=== PATIENT | male | born 1980 | race Caucasian/White ===

== ENCOUNTER 2018-05-26 05:45 | Day surgery (SDC) | payer OTHER ==
[~2018-05-26] VITALS: Ht 180.3 cm; Wt 80.5 kg
[~2018-05-26 05:45] MED LIST: ACET-66 PO; MEDICAL MARIJUANA PO; RINGERS SOLUTION,LACTATED 0 ML IV ONE; [UNRECOGNIZED DRUG - OTHER] PO
[2018-05-26] MEDS ORDERED: RINGERS SOLUTION,LACTATED 1,000 ML IV ONE ×2 (06:00→06:47)
[2018-05-26] MEDS ORDERED: BUPIVACAINE HCL/PF 0.5% 30 ML VIAL ONE (06:46)
[2018-05-26] MEDS ORDERED: LIDOCAINE HCL 2%/EPI 1:200,000/PF 20 ML VIAL ONE (06:46)
[2018-05-26] MEDS ORDERED: GUM MASTIC/STORAX/MSAL/ALCOHOL LIQUID 0.67 ML VIAL TP ONE (06:46)
[2018-05-26] MEDS ORDERED: SODIUM CHLORIDE 0.9% 0 ML IV ONE (06:47)
[2018-05-26] MEDS ORDERED: MEPERIDINE HCL/PF 25 MG/0.5 ML AMP IVP PRN (08:15)
[2018-05-26] MEDS ORDERED: FentaNYL CITRATE-PF 100 MCG/2 ML VIAL IVP PRN (08:15)
[2018-05-26] MEDS ORDERED: ACETAMINOPHEN 500 MG TABLET PO PRN (09:30)
[2018-05-26] MEDS ORDERED: IBUPROFEN 600 MG TABLET PO PRN (09:30)
[2018-05-26] MEDS ORDERED: HYDROCODONE/ACETAMINOPHEN 5-325 MG TABLET PO PRN (09:30)
[2018-05-26] MEDS ORDERED: HYDROmorphone 2 MG/ML SYRINGE ONE (09:32)
[2018-05-26] MEDS: HYDROmorphone 2 MG/ML SYRINGE IVP PRN ×3 (09:34→10:04)
[2018-05-26] MEDS ORDERED: LIDOCAINE HCL/PF 2% 5 ML VIAL INJ ONE (12:00)
[2018-05-26] MEDS ORDERED: PROPOFOL 1% 20 ML VIAL IVP ONE (12:00)
[2018-05-26] MEDS ORDERED: SUCCINYLCHOLINE CHLORIDE 20 MG/ML 10 ML VIAL IVP ONE (12:00)
[2018-05-26] MEDS ORDERED: MORPHINE SULFATE 4 MG/ML SYRINGE IVP ONE (12:00)
[2018-05-26] MEDS ORDERED: MIDAZOLAM HCL 2 MG/2 ML VIAL IVP ONE (12:00)
[2018-05-26] MEDS ORDERED: ONDANSETRON HCL 4 MG/2 ML VIAL IVP ONE (12:00)
[2018-05-26] MEDS ORDERED: 0.9% SODIUM CHLORIDE 10 ML VIAL IVP ONE (12:00)
[2018-05-26] MEDS ORDERED: KETOROLAC TROMETHAMINE 60 MG/2 ML VIAL IM ONE (12:00)
[2018-05-26] MEDS ORDERED: FentaNYL CITRATE-PF 100 MCG/2 ML VIAL IVP ONE (12:00)
[2018-05-26] MEDS ORDERED: ROCURONIUM BROMIDE 10 MG/ML 5 ML VIAL IVP ONE (12:00)
[2018-05-26] MEDS ORDERED: NEOSTIGMINE METHYLSULFATE 1 MG/ML 10 ML VIAL IVP ONE (12:00)
[2018-05-26] MEDS ORDERED: OXYGEN THERAPY IH SCH (20:00)
== END 2018-05-26 11:40 | disposition home or self-care (01) ==
LOC: SURGERY 05:45
PROVIDERS: ATTEND Surgery
DX: K40.20 Bilateral inguinal hernia, without obstruction or gangrene, not specified as recurrent (principal); F12.90 Cannabis use, unspecified, uncomplicated; F17.210 Nicotine dependence, cigarettes, uncomplicated; Z72.89 Other problems related to lifestyle; Z79.891 Long term (current) use of opiate analgesic; Z79.899 Other long term (current) drug therapy
CPT/HCPCS: 49650; C1781; J0330; J0690; J1170; J1885; J2250; J2270; J2405; J2704; J3010; J3490 ×3; J7120; J7030